=== PATIENT | female | born 1960 | race Caucasian/White ===

== ENCOUNTER 2023-02-28 07:00 | Outpatient (CLI) | payer OTHER, SELFPAY ==
--- NOTE | 2023-02-28 07:15 | MR_ITS ---
[address] [address] Phone:?[phone] Fax:?[phone] Referring Physician Information: Trevor Cantu M.D. [address] [place] [id number] Phone:?[phone] Fax:?[phone] Patient:Niranjan Villatoro D.O.B:?1960 Sex:?Female Phone:?[phone] [facility] MRN:?[id number] Exam Date:?02/28/2023 EXAM: MRI of the LEFT SHOULDER, without contrast CLINICAL: Left shoulder pain. Evaluate for rotator cuff tear. COMPARISONS: X-rays dated 01/10/2023. TECHNICAL: Multiplanar multisequence MRI of the left shoulder was obtained. SEDATION: None. CONTRAST: None. FINDINGS: Rotator cuff: Supraspinatus/Infraspinatus: There is mild tendinosis of the distal supraspinatus and infraspinatus tendons without evidence of significant tendon tear. No significant fatty atrophy of the muscle bellies. Teres minor: No tendinosis, tear or atrophy. Subscapularis: No tendinosis, tear or atrophy. Bursae: Subacromial-subdeltoid: Mild bursal fluid. Subcoracoid: No significant bursal fluid. Coracoacromial arch: Acromion morphology: Type II. Os acromiale is present. Acromiohumeral space: Moderately narrowed. Coracohumeral space: Within normal limits. Biceps tendon, long head: Attenuated appearance of the intra-articular and imaged proximal extra-articular long head biceps tendon. No significant tendon displacement. Glenohumeral joint: Physiologic volume of joint fluid. Articular cartilage: No significant chondral loss. Capsule: No convincing evidence of capsular thickening or injury. Labrum: No convincing discrete labral tear identified on this nonarthrogram exam. No perilabral cyst identified. Bones: No suspicious marrow signal alteration, fracture or dislocation. Acromioclavicular joint: Mild changes of arthrosis. No AC joint injury/widening. IMPRESSION: 1. Mild tendinosis of the distal supraspinatus and infraspinatus tendons without evidence of rotator cuff tendon tear. 2. Moderately narrowed acromiohumeral space. Mild subacromial/subdeltoid bursitis. 3. 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 4. Attenuated appearance of the long head biceps tendon. 5. No evidence of glenohumeral chondral defects or fracture. JCZ Electronically signed on 02/28/2023 11:20:00 AM by Leo Figueroa D.O.
== END 2023-02-28 07:01 | disposition home or self-care (01) ==
LOC: MRI 07:01
PROVIDERS: PCP Nurse Practitioner; Visit Provider Orthopaedic Surgery
DX: M25.512 Pain in left shoulder (principal); M75.52 Bursitis of left shoulder; M19.012 Primary osteoarthritis, left shoulder
CPT/HCPCS: 73221

== ENCOUNTER 2023-05-17 11:00 | Outpatient (RCR) | payer OTHER, SELFPAY | END 2023-09-14 23:59 | disposition home or self-care (01) | PROVIDERS: PCP Nurse Practitioner; Visit Provider Orthopaedic Surgery | DX: M75.52 Bursitis of left shoulder (principal); M25.512 Pain in left shoulder; R29.898 Other symptoms and signs involving the musculoskeletal system; Z51.89 Encounter for other specified aftercare | CPT/HCPCS: 97110; 97140; 97162 ==

== ENCOUNTER 2024-07-11 13:28 | Outpatient (CLI) | payer OTHER, SELFPAY | END 2024-07-11 13:29 | disposition home or self-care (01) | PROVIDERS: PCP Nurse Practitioner; Visit Provider Registered Nurse | DX: Z90.3 Acquired absence of stomach [part of] (principal); Z13.228 Encounter for screening for other metabolic disorders; Z13.21 Encounter for screening for nutritional disorder | CPT/HCPCS: 80048; 82607 ==